=== PATIENT | female | born 2000 | race Caucasian/White ===

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

== ENCOUNTER 2020-07-16 11:27 | Emergency (ER) | payer MEDICAID, OTHER | END 2020-07-16 13:28 | disposition left against medical advice (07) | LOC: ER 11:27 | DX: J45.909 Unspecified asthma, uncomplicated (principal); Z53.21 Procedure and treatment not carried out due to patient leaving prior to being seen by health care provider ==

== ENCOUNTER 2020-08-14 13:07 | Emergency (ER) | payer MEDICAID, SELFPAY ==
[~2020-08-14] VITALS: Ht 157.5 cm; Wt 50.0 kg
[2020-08-14] MEDS ORDERED: ketorolac trometh. 30mg/ml inj. IV ONE (14:20)
[2020-08-14] MEDS ORDERED: normal saline 1000ML IV soln IVB ONE (14:20)
[2020-08-14] MEDS ORDERED: CefTRIAXone 2gm/D5W 50ml BAG 50 ML IV ONE (14:20)
[2020-08-14] MEDS ORDERED: ondansetron/PF 4mg/2ml inj IV ONE (14:20)
[2020-08-14 14:24] LABS: BASOPHILS # (AUTO) 0.1 X10'3 (0-0.2); BASOPHILS % (AUTO) 0.7 % (0-1); EOSINOPHILS # (AUTO) 0.1 X10'3 (0-0.9); EOSINOPHILS % (AUTO) 1.5 % (0-6); HEMATOCRIT 40.4 % (35.0-45.0); HEMOGLOBIN 13.3 g/dl (12.0-16.0); LYMPHOCYTES # (AUTO) 2.6 X10'3 (1.1-4.8); MEAN CORPUSCULAR HGB CONC 32.8 g/dL (33.0-36.5); MEAN CORPUSCULAR VOLUME 91.6 FL (78-98); MEAN PLATELET VOLUME 7.4 FL (7.4-10.4); MONOCYTES # (AUTO) 0.6 X10'3 (0-0.9); MONOCYTES % (AUTO) 7.2 % (2-12); NEUTROPHILS # (AUTO) 4.7 X10'3 (1.8-7.7); NEUTROPHILS % (AUTO) 58.6 % (42-75); PLATELET COUNT 285 X10'3 (140-440); RED BLOOD COUNT 4.41 X10'6 (4.20-5.60)
[2020-08-14 15:18] LABS: ALANINE AMINOTRANSFERASE 12 U/L (12-78); ALBUMIN 4.6 G/DL (3.4-5.0); ALBUMIN/GLOBULIN RATIO 1.7 (1.1-1.5); ALKALINE PHOSPHATASE 64 IU/L (20-180); ANION GAP 11 (8-16); ASPARTATE AMINO TRANSFERASE 14 U/L (10-37); BILIRUBIN,TOTAL 0.4 MG/DL (0.1-1.0); BLOOD UREA NITROGEN 10 MG/DL (7-18); BUN/CREATININE RATIO 13.7 (6.6-38.0); CALCIUM 9.2 MG/DL (8.5-10.1); CHLORIDE 106 MMOL/L (99-107); CREATININE 0.73 MG/DL (0.40-0.90); GLUCOSE 92 MG/DL (70-104); POTASSIUM 4.2 MMOL/L (3.5-5.1); SODIUM 143 MMOL/L (135-145); TOTAL CARBON DIOXIDE 26.3 MMOL/L (24-32); TOTAL PROTEIN 7.3 G/DL (6.4-8.2); eGFR > 90 ML/MIN
[2020-08-14] MEDS ORDERED: diazepam inj 5 MG/ML inj. IV ONE (16:10)
[2020-08-14 16:21] LABS: URINE HCG NEGATIVE (NEG)
[2020-08-14 16:30] LABS: CLARITY,URINE SLIGHTLY CLOUDY (Clear); COLOR,URINE YELLOW (Yellow); GLUCOSE, URINE NEGATIVE (Neg); KETONES,URINE NEGATIVE (Neg); LEUKOCYTE ESTERASE ,URINE NEGATIVE (Neg); NITRITES, URINE NEGATIVE (Neg); OCCULT BLOOD,URINE MODERATE (Neg); PROTEIN,URINE NEGATIVE (Neg); UROBILINOGEN,URINE 0.2 E.U/dL (0.2-1.0)
[2020-08-14 16:55] LABS: UA COLLECTION TYPE CLN CATCH MIDSTREAM; WBC,URINE 0-4 /HPF (0-4)
[2020-08-14 16:56] LABS: BACTERIA,URINE FEW /HPF (Neg); COARSE GRANULAR CAST 0-3 /LPF (NEGATIVE); HYALINE CASTS 0-3 /LPF (NEGATIVE); MUCUS STRANDS FEW /LPF (Neg); SQUAMOUS EPITHELIAL CELL,UR MANY /LPF (FEW); TRANSITIONAL EPI CELLS,URINE FEW /HPF
[2020-08-14 16:57] LABS: AMORPHOUS PHOSPHATES 2+
[2020-08-14] MEDS ORDERED: CYCL-1 PO (17:01)
[2020-08-14 17:26] VITALS: BP 100/62
== END 2020-08-14 17:29 | disposition home or self-care (01) ==
LOC: ER 13:08
DX: M54.6 Pain in thoracic spine (principal); M62.830 Muscle spasm of back; R53.1 Weakness; J45.909 Unspecified asthma, uncomplicated; Z87.442 Personal history of urinary calculi; Z88.8 Allergy status to other drugs, medicaments and biological substances; Z91.040 Latex allergy status; Z79.2 Long term (current) use of antibiotics; Z79.899 Other long term (current) drug therapy
CPT/HCPCS: 36415; 71045; 80053; 81001; 81025; 84484; 85025; 85651; 93005; 96365; 96375; 99285; J0696; J1885; J2405; J3360; J7030

== ENCOUNTER 2020-12-07 13:52 | Emergency (ER) | payer MEDICAID ==
[~2020-12-07] VITALS: Ht 154.9 cm; Wt 49.0 kg
[~2020-12-07 13:52] MED LIST changes: +ALBU8.5H17 IH; -ALBU8.5H8 IH; +CYCL-1 PO
[2020-12-07 13:56] VITALS: BP 125/86
[2020-12-07] MEDS ORDERED: LORazepam 1 MG tablet PO ONE (14:15)
[2020-12-07] MEDS ORDERED: predniSONE 20 mg tablet PO ONE (14:15)
[2020-12-07] MEDS ORDERED: famotidine 20mg tablet PO ONE (14:15)
[2020-12-07 14:23] LABS: BASOPHILS % (AUTO) 0.5 % (0-1); EOSINOPHILS % (AUTO) 0.5 % (0-6); HEMATOCRIT 40.5 % (35.0-45.0); HEMOGLOBIN 13.5 g/dl (12.0-16.0); LYMPHOCYTES # (AUTO) 2.7 X10'3 (1.1-4.8); LYMPHOCYTES % (AUTO) 30.9 % (21-51); MEAN CORPUSCULAR HEMOGLOBIN 30.7 PG (27.0-31.0); MEAN CORPUSCULAR HGB CONC 33.3 g/dL (33.0-36.5); MEAN CORPUSCULAR VOLUME 92.1 FL (78-98); MEAN PLATELET VOLUME 7.3 FL (7.4-10.4); MONOCYTES # (AUTO) 0.3 X10'3 (0-0.9); MONOCYTES % (AUTO) 3.6 % (2-12); NEUTROPHILS # (AUTO) 5.6 X10'3 (1.8-7.7); NEUTROPHILS % (AUTO) 64.5 % (42-75); PLATELET COUNT 378 X10'3 (140-440); RED BLOOD COUNT 4.39 X10'6 (4.20-5.60); RED CELL DISTRIBUTION WIDTH 13.4 % (11.5-14.5); WHITE BLOOD COUNT 8.6 X10'3 (4.5-11.0)
[2020-12-07 14:28] LABS: URINE HCG NEGATIVE (NEG)
[2020-12-07 14:32] LABS: ALBUMIN 4.2 G/DL (3.4-5.0); ANION GAP 13 (8-16); BLOOD UREA NITROGEN 9 MG/DL (7-18); CALCIUM 8.9 MG/DL (8.5-10.1); CHLORIDE 108 MMOL/L (99-107); GLUCOSE 124 MG/DL (70-104); SODIUM 143 MMOL/L (135-145); TOTAL CARBON DIOXIDE 22.4 MMOL/L (24-32); eGFR 80 ML/MIN
[2020-12-07 14:33] LABS: CLARITY,URINE CLEAR (Clear); COLOR,URINE YELLOW (Yellow); GLUCOSE, URINE NEGATIVE (Neg); KETONES,URINE NEGATIVE (Neg); LEUKOCYTE ESTERASE ,URINE NEGATIVE (Neg); NITRITES, URINE NEGATIVE (Neg); OCCULT BLOOD,URINE TRACE-LYSED (Neg); PROTEIN,URINE NEGATIVE (Neg); UA COLLECTION TYPE CLN CATCH MIDSTREAM; UROBILINOGEN,URINE 0.2 E.U/dL (0.2-1.0)
[2020-12-07 14:41] LABS: BACTERIA,URINE NONE SEEN /HPF (Neg); MUCUS STRANDS NONE SEEN /LPF (Neg); RBC,URINE NONE SEEN /HPF (0-2); SQUAMOUS EPITHELIAL CELL,UR FEW /LPF (FEW); WBC,URINE NONE SEEN /HPF (0-4)
[2020-12-07 14:44] LABS: URINE AMPHETAMINE SCREEN NEGATIVE (Neg); URINE BARBITUATE SCREEN NEGATIVE (Neg); URINE BENZODIAZEPINES SCREEN NEGATIVE (Neg); URINE CANNABINOID SCREEN POSITIVE (Neg); URINE COCAINE SCREEN NEGATIVE (Neg); URINE METHADONE SCREEN NEGATIVE (Neg); URINE OPIATE SCREEN NEGATIVE (Neg); URINE PHENCYCLIDINE SCREEN NEGATIVE (Neg)
[2020-12-07] MEDS ORDERED: PRED50TA PO (16:08)
[2020-12-07] MEDS ORDERED: DIPH25CA83 PO (16:08)
[2020-12-07] MEDS ORDERED: FAMO40TA59 PO (16:08)
[2020-12-07] MEDS ORDERED: EPIN0.3P3 IM (16:09)
== END 2020-12-07 16:29 | disposition home or self-care (01) ==
LOC: ER 13:52
DX: T88.6XXA Anaphylactic reaction due to adverse effect of correct drug or medicament properly administered, initial encounter (principal); T50.995A Adverse effect of other drugs, medicaments and biological substances, initial encounter; J45.909 Unspecified asthma, uncomplicated; Z87.442 Personal history of urinary calculi; Z87.81 Personal history of (healed) traumatic fracture; Z79.2 Long term (current) use of antibiotics; Z79.899 Other long term (current) drug therapy; Z91.040 Latex allergy status; Z91.018 Allergy to other foods; Y84.8 Other medical procedures as the cause of abnormal reaction of the patient, or of later complication, without mention of misadventure at the time of the procedure; Y82.8 Other medical devices associated with adverse incidents; Y92.89 Other specified places as the place of occurrence of the external cause
CPT/HCPCS: 36415; 80048; 80305; 81001; 81025; 85025; 99291; J7512; 99284

== ENCOUNTER 2021-02-12 19:09 | Emergency (ER) | payer MEDICAID, OTHER ==
[~2021-02-12] VITALS: Ht 154.9 cm; Wt 46.4 kg
[~2021-02-12 19:09] MED LIST changes: +DIPH25CA83 PO; +EPIN0.3P3 IM; +FAMO40TA59 PO; +PRED50TA PO
[2021-02-12 19:29] VITALS: BP 117/75
== END 2021-02-12 21:28 | disposition home or self-care (01) ==
LOC: ER 19:10
DX: J06.9 Acute upper respiratory infection, unspecified (principal); Z20.822 Contact with and (suspected) exposure to COVID-19; J45.909 Unspecified asthma, uncomplicated; Z87.442 Personal history of urinary calculi; Z91.040 Latex allergy status; Z88.8 Allergy status to other drugs, medicaments and biological substances; Z79.2 Long term (current) use of antibiotics; Z79.899 Other long term (current) drug therapy
CPT/HCPCS: 87635; 99283; C9803

== ENCOUNTER 2021-03-08 22:40 | Emergency (ER) | payer OTHER ==
[~2021-03-08] VITALS: Ht 154.9 cm; Wt 49.1 kg
[2021-03-08 22:45] VITALS: BP 115/69
--- NOTE | 2021-03-08 23:29 | NUR ---
JOHNNA ADVISED. AN OFFICER WILL BE RESPONDING TO THE ED TO INTERVIEW PATIENT.
--- NOTE | 2021-03-08 23:30 | NUR ---
A DIRTY URINE SAMPLE IS BEING COLLECTED. PATIENT INSTRUCTED NOT TO CLEAN.
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
--- NOTE | 2021-03-09 01:09 | NUR ---
PER [facility], A CHANGE IN PLANS. A SART EXAM IS NOW REQUESTED. TECHNICAL MGR ADVISED. SART RN PAGED.
--- NOTE | 2021-03-09 01:36 | NUR ---
PATIENT AND MOM WERE FRUSTRATED WITH THE SART PROCESS AND DECIDED TO NOT GO THROUGH WITH HAVING THE SART NURSE COME IN AND COMPLETE THE EXAM. MOM STATED THAT [facility] SHOULD HAVE A SART NURSE ONSITE AT ALL TIMES.
--- NOTE | 2021-03-09 02:33 | NUR ---
JOHNNA ADVISED THAT PATIENT AND HER AUNT LEFT THE HOSPITAL PRIOR TO SART NURSE ARRIVING. JOHNNA WILL MAKE NOTATION ON THEIR RECORD.
== END 2021-03-09 03:31 | disposition left against medical advice (07) ==
LOC: ER 22:42 → EEVIPCON 22:42 → ER 03-09 03:31
DX: T74.21XA Adult sexual abuse, confirmed, initial encounter (principal); J45.909 Unspecified asthma, uncomplicated; Z87.442 Personal history of urinary calculi; Z87.81 Personal history of (healed) traumatic fracture; Z88.8 Allergy status to other drugs, medicaments and biological substances; Z91.040 Latex allergy status; Z79.2 Long term (current) use of antibiotics; Z79.899 Other long term (current) drug therapy
CPT/HCPCS: 99281

== ENCOUNTER 2022-02-21 12:37 | Emergency (ER) | payer MEDICAID ==
[~2022-02-21] VITALS: Ht 154.9 cm; Wt 54.0 kg
[2022-02-21 12:38] VITALS: BP 111/63
[2022-02-21] MEDS ORDERED: methylPREDNISolone sod succ 125mg/2ml vial IM ONE (12:50)
[2022-02-21] MEDS ORDERED: EPIN0.3P3 IM (13:14)
== END 2022-02-21 13:40 | disposition home or self-care (01) ==
LOC: ER 12:38
DX: T78.40XA Allergy, unspecified, initial encounter (principal); J45.909 Unspecified asthma, uncomplicated; Z88.8 Allergy status to other drugs, medicaments and biological substances; Z91.040 Latex allergy status; Z79.899 Other long term (current) drug therapy; X58.XXXA Exposure to other specified factors, initial encounter
CPT/HCPCS: 96372; 99283; J2930